=== PATIENT | male | born 1990 | race Caucasian/White ===

== ENCOUNTER → 2017-02-16 | Outpatient (CLI) | payer OTHER ==
[~2017-02-16] MED LIST: ADVIL200 MG PO; ASPIRIN 81M81 MG/TA2 PO
== END ==
LOC: MHCPAIN 08:23
DX: G89.29 Other chronic pain (principal); R10.30 Lower abdominal pain, unspecified; M79.2 Neuralgia and neuritis, unspecified
CPT/HCPCS: G0463

== ENCOUNTER → 2017-02-27 | Outpatient (CLI) | payer OTHER | LOC: MHCPAIN 11:15 | DX: M79.2 Neuralgia and neuritis, unspecified (principal) | CPT/HCPCS: J1040 ==

== ENCOUNTER → 2017-03-30 | Outpatient (CLI) | payer OTHER | LOC: MHCPAIN 08:04 | DX: G89.29 Other chronic pain (principal); R10.30 Lower abdominal pain, unspecified; M79.2 Neuralgia and neuritis, unspecified | CPT/HCPCS: G0463 ==

== ENCOUNTER 2017-03-31 07:27 | Outpatient (CLI) | payer OTHER ==
[2017-03-31] VITALS (8 sets, daily range): BP systolic 95–133; BP diastolic 67–86; PULSE 49–82; TEMP 97.5
[~2017-03-31] VITALS: Ht 183 cm; Wt 81.8 kg
[2017-03-31] MEDS ORDERED: ADVIL200 MG PO (07:55)
[2017-03-31 07:58] LABS: HEMATOCRIT 45.1 % (42.0-52.0); HEMOGLOBIN 16.5 g/dl (13.5-18.0); MEAN CELL VOLUME 85 fl (80.0-100.0); MEAN CORPUSCULAR HEMOGLOBIN 31 pg (27.0-31.0); MEAN CORPUSCULAR HGB CONC 37 g/dl (33.0-37.0); MEAN PLATELET VOLUME 10.5 fl (7.4-10.4); PLATELET COUNT 173 K/mm3 (130-400); RED BLOOD COUNT 5.28 M/mm3 (4.20-5.60); REDCELL DISTRIBUTION WIDTH-CV 12.1 % (11.5-14.5); WHITE BLOOD COUNT 6.2 K/mm3 (4.8-10.8)
[2017-03-31 08:03] LABS: INR 1.1 (0.8-3.0); PROTHROMBIN TIME 11.9 SECONDS (9.7-12.8)
[2017-03-31 08:08] LABS: CALCIUM 9.4 mg/dL (8.4-10.2); CREATININE, serum 1.08 mg/dL (0.66-1.25); POTASSIUM 3.8 mmol/L (3.4-5.0)
[2017-03-31] MEDS ORDERED: ASPIRIN 81M81 MG/TA2 PO (09:43)
== END 2017-03-31 10:23 | disposition home or self-care (01) ==
LOC: COL.RAD 07:27
PROVIDERS: Internal Medicine Cardiovascular Disease
DX: R53.83 Other fatigue (principal); Z95.818 Presence of other cardiac implants and grafts
CPT/HCPCS: G9654; J2704; J7120